=== PATIENT | female | born 1985 | race Caucasian/White ===

== ENCOUNTER 2019-05-11 08:00 | Outpatient (CLI) | payer OTHER ==
[2019-05-11 12:28] LABS: BASOPHILS # (AUTO) 0.1 10^3/uL (0.0-0.1); BASOPHILS % (AUTO) 0.9 %; EOSINOPHILS # (AUTO) 0.1 10^3/uL (0.0-0.7); HGB - HEMOGLOBIN 13.2 g/dL (12.0-16.0); LYMPHOCYTES # (AUTO) 1.9 10^3/uL (1.5-3.5); LYMPHOCYTES % (AUTO) 35.3 %; MEAN CORPUSCULAR HEMOGLOBIN 28.3 pg (27.0-31.0); MEAN CORPUSCULAR HGB CONC 33.1 g/dL (32.0-36.0); MEAN CORPUSCULAR VOLUME 85.4 fL (81.0-99.0); MONOCYTES # (AUTO) 0.4 10^3/uL (0.0-1.0); MONOCYTES % (AUTO) 6.4 %; NEUTROPHILS % (AUTO) 55.2 %; PLT - PLATELET COUNT 243 10^3/uL (130-450); RED BLOOD COUNT 4.67 10^6/uL (4.20-5.40); RED CELL DISTRIBUTION WIDTH 13.3 % (12.0-15.0); WHITE BLOOD COUNT 5.5 x10^3/uL (4.8-10.8)
[2019-05-11 12:43] LABS: ALBUMIN 4.1 g/dL (3.2-5.5); ALBUMIN/GLOBULIN RATIO 1.2 (1.0-2.2); BILIRUBIN,TOTAL 0.4 mg/dL (0.2-1.0); CALCIUM 8.8 mg/dL (8.5-10.3); CREATININE 0.8 mg/dL (0.4-1.0); TOTAL PROTEIN 7.4 g/dL (6.7-8.2)
== END 2019-05-11 23:59 | disposition home or self-care (01) ==
LOC: LAB.WCP 08:00
PROVIDERS: ATTEND Physician Assistant
DX: Z00.00 Encounter for general adult medical examination without abnormal findings (principal)
CPT/HCPCS: 36415; 80053; 84443; 85025

== ENCOUNTER 2019-07-07 10:57 | Emergency (ER) | payer OTHER ==
--- NOTE | 2019-07-07 11:59 | ED Physician Documentation ---
History of Present Illness - Stated complaint Stated Complaint: NECK PX - Chief complaint Chief Complaint: Ext Problem - Additonal information Additional information: This is a 34-year-old female presents with right neck pain. Patient denies any known inciting trauma or event. Several days ago she woke up and she had some soreness in her right upper posterior neck. She is able to move her head to the left fine but when she turns the right she has soreness in this area. She states that is been gradually improving over the last 2 days, but because it is persisting she want to get checked out. She denies any numbness, weakness, ting ling, fever, headache, chest pain or shortness of breath.She took Excedrin this morning which helped a little bit. and has applied some icy hot. She otherwise has not tried any meds. Review of Systems Constitutional: denies: Fever Eyes: denies: Loss of vision Respiratory: denies: Dyspnea Neurologic: denies: Focal weakness, Numbness PD PAST MEDICAL HISTORY - Past Medical History Past Medical History: Yes Psych: Anxiety - Past Surgical History Past Surgical History: No - Allergies Allergies/Adverse Reactions: Allergies Allergy/AdvReac Type Severity Reaction Status Date / Time No Known Drug Allergies Allergy Verified 07/07/19 11:10 - Social History Does the pt smoke?: No Smoking Status: Never smoker Does the pt drink ETOH?: No - Immunizations Immunizations are current?: Yes - POLST Patient has POLST: No PD ED PE NORMAL - Vitals Vital signs reviewed: Yes - General General: Alert and oriented X 3, No acute distress - HEENT HEENT: Atraumatic, PERRL, EOMI, Ears normal, Moist mucous membranes, Pharynx benign, Dentition benign - Neck Neck: Other (Patient is neck appears atraumatic she has focal tenderness at the insertion point of the sternocleidomastoid muscle towards the base of her skull. On the right side. She has full flexion extension of her neck without pain, no bony tenderness to palpation, no swelling or skin changes. The mastoid process is normal in appearance, there is no erythema. She is able to rotate her head to the left and right past 45 degrees in both directions without any apparent difficulty, when she rotates her head to the right past 45 degrees she does have some soreness.) - Cardiac Cardiac: RRR - Respiratory Respiratory: No respiratory distress - Neuro Neuro: Alert and oriented X 3, migrant leader 2-12 intact, No motor deficit, No sensory deficit, Normal speech Results - Vitals Vitals: Vital Signs - 24 hr 07/07/19 11:10 Temperature 36.7 C Heart Rate 70 Respiratory 16 Rate Blood Pressure 132/92 H O2 Saturation 98 Oxygen O2 Source Room air PD MEDICAL DECISION MAKING - ED course Complexity details: considered differential (Strain, sprain, nerve impingement) ED course: Patient is well-appearing on exam. She has no confusion, no fever, and she has excellent range of motion of her neck, no signs of meningitis. She has no signs of ear infection no mastoid tenderness, no signs of infectious process at this time. Her pain is truly isolated to the sternocleidomastoid muscle on the right, and it is been improving over the last several days despite patient Rarely using any analgesics. I discussed with her that this does appear to be a neck strain, I recommended regular ibuprofen and Tylenol, avoidance of further straining events, and return to the emergency department with concerning symptoms such as fever, significant worsening pain, any neurologic symptoms. Patient agrees this plan and was discharged home Departure - Departure Disposition: , Self Care Clinical Impression: Neck strain Qualifiers: Encounter type: initial encounter Qualified Code(s): S16.1XXA - Strain of muscle, fascia and tendon at neck level, initial encounter Condition: Good Instructions: ED Neck Pain No Trauma Follow-Up: Robyn Kirby PA [Primary Care Provider] - Comments: You appear to have a strain of your neck, please take ibuprofen 600 mg every 6 hours for the next 48 hours, and then as needed for pain. You may combine this with Tylenol 650 mg every 6 hours as needed. You may also apply icy hot, warm or cold packs. If you develop weakness, numbness, greatly increasing pain, vision changes, fever or any other concerning symptoms return to the emergency department.
[2019-07-07] MEDS ORDERED: IBUPROFEN 600 MG TABLET PO STA (12:15)
[2019-07-07 12:50] VITALS: BP 130/90
== END 2019-07-07 12:49 | disposition home or self-care (01) ==
LOC: ED 10:57
DX: S16.1XXA Strain of muscle, fascia and tendon at neck level, initial encounter (principal); X58.XXXA Exposure to other specified factors, initial encounter
CPT/HCPCS: 99282; 99284; A9270

== ENCOUNTER 2019-10-26 15:00 | Outpatient (CLI) | payer OTHER ==
--- NOTE | 2019-10-27 01:44 | XRAY Report ---
Reason: CHEST WALL PAIN Procedure Date: 10/26/2019 Accession Number: [id number] / [id number] Procedure: WCP - Chest 2 View X-Ray CPT Code: 01662 Final Report FULL RESULT: EXAM: CHEST RADIOGRAPHY EXAM DATE: 10/26/2019 03:00 PM. CLINICAL HISTORY: CHEST WALL PAIN. COMPARISON: None. TECHNIQUE: 2 views. FINDINGS: Lungs/Pleura: No dense consolidation. No large effusion or pneumothorax. No pulmonary edema. Mediastinum: Heart and mediastinal contours are unremarkable. Other: Right upper quadrant surgical clips. IMPRESSION: No acute radiographic pulmonary abnormalities. [facility]
== END 2019-10-26 23:59 | disposition home or self-care (01) ==
LOC: DI.WCP 15:00
PROVIDERS: ATTEND Family Medicine
DX: R07.89 Other chest pain (principal)
CPT/HCPCS: 71046